=== PATIENT | female | born 1990 | race American Indian/Alaskan Native ===

== ENCOUNTER 2018-08-26 20:41 | Emergency (ER) | payer SELFPAY ==
[2018-08-26 21:47] VITALS: BP 145/85
== END 2018-08-26 23:24 | disposition left against medical advice (07) ==
LOC: ED 20:41
DX: K08.89 Other specified disorders of teeth and supporting structures (principal); Z53.21 Procedure and treatment not carried out due to patient leaving prior to being seen by health care provider